=== PATIENT | female | born 1955 | race Two or more races ===

== ENCOUNTER → 2021-02-06 | Outpatient (CLI) | payer MEDICARE ==
[2021-02-06 09:26] LABS: ALANINE AMINOTRANSFERASE 17 U/L (12-78); ALBUMIN 3.5 g/dL (3.4-5.0); ANION GAP 6 mmol/L (5-15); CALCIUM 8.7 mg/dL (8.5-10.1); CHLORIDE 109 mmol/L (98-107)
[2021-02-06 09:29] LABS: ALKALINE PHOSPHATASE 95 U/L (45-117); BILIRUBIN,TOTAL 0.2 mg/dL (0.2-1.0); CREATININE 0.88 mg/dL (0.55-1.02)
[2021-02-06 09:30] LABS: BASOPHILS % (AUTO) 1 % (0-1); EOSINOPHILS % (AUTO) 6 % (1-7); LYMPHOCYTES % (AUTO) 24 % (22-44); MEAN CORPUSCULAR HEMOGLOBIN 32.7 pg (27.0-34.8); MEAN CORPUSCULAR HGB CONC 34.4 g/dL (32.4-35.8); MEAN PLATELET VOLUME 10.3 fL (7.4-10.4); MONOCYTES % (AUTO) 7 % (2-9); NEUTROPHILS % (AUTO) 63 % (42-75); PLATELET COUNT 209 x10^3/uL (130-400); RED BLOOD COUNT 4.49 x10^6/uL (3.82-5.3); RED CELL DISTRIBUTION WIDTH 13.8 % (9.6-15.2)
== END | disposition home or self-care (01) ==
LOC: CFH 08:00
PROVIDERS: ATTEND Internal Medicine Cardiovascular Disease
DX: Z13.6 Encounter for screening for cardiovascular disorders (principal); I08.2 Rheumatic disorders of both aortic and tricuspid valves; I10 Essential (primary) hypertension; I49.9 Cardiac arrhythmia, unspecified; Z72.0 Tobacco use
CPT/HCPCS: 36415; 71046; 80053; 85025; 93306

== ENCOUNTER 2021-02-10 06:04 | Day surgery (SDC) | payer MEDICARE ==
[~2021-02-10] VITALS: Ht 172.7 cm; Wt 69.5 kg
[2021-02-10] MEDS ORDERED: LINA145C PO (06:29)
[2021-02-10] MEDS ORDERED: LISI-170 PO (06:29)
[2021-02-10] MEDS ORDERED: SODIUM CHLORIDE 0.9% 1,000 ML IV SCH (06:30)
[2021-02-10 07:01] VITALS: BP 137/86
[2021-02-10 07:09] LABS: INTERNATIONAL NORMALIZED RATIO 0.99 (0.93-1.1); PROTHROMBIN TIME 10.6 Seconds (9.6-11.5)
[2021-02-10] MEDS ORDERED: LIDOCAINE 1%, 20ML ONE (07:24)
[2021-02-10] MEDS ORDERED: MIDAZOLAM 1 MG/ML, 2ML ONE (07:24)
[2021-02-10] MEDS ORDERED: FENTANYL PF 100 MCG/2ML ONE (07:24)
[2021-02-10] MEDS ORDERED: ISOPROTERENOL 0.2MG/ML, 5ML ONE (09:15)
[2021-02-10] MEDS ORDERED: ONDANSETRON 2MG/ML, 2ML IVPush ONE (11:30)
[2021-02-10] MEDS ORDERED: ACETAMINOPHEN 325 MG TABLET PO PRN (11:30)
[2021-02-11] MEDS ORDERED: LISINOPRIL 20 MG TABLET PO SCH (09:00)
== END 2021-02-10 14:26 | disposition home or self-care (01) ==
LOC: CACL 06:04
PROVIDERS: ATTEND Internal Medicine Cardiovascular Disease
DX: I49.3 Ventricular premature depolarization (principal); I10 Essential (primary) hypertension; E78.5 Hyperlipidemia, unspecified; F12.10 Cannabis abuse, uncomplicated; F17.210 Nicotine dependence, cigarettes, uncomplicated; Z79.899 Other long term (current) drug therapy; Z82.49 Family history of ischemic heart disease and other diseases of the circulatory system
CPT/HCPCS: 36415; 85610; 93005; 93623; 93654; 99156; 99157; C1732; C1894; J2250; J2405; J3010; 93613; 93653